=== PATIENT | female | born 1985 | race Caucasian/White ===

== ENCOUNTER 2017-11-16 19:29 | Emergency (ER) | payer BC ==
[2017-11-16] MEDS ORDERED: SODIUM CHLORIDE 0.9% 1,000 ML IV STA (20:16)
--- NOTE | 2017-11-16 20:24 | ED ---
General Adult HPI <Sonny Wilson - Last Filed: 11/16/17 22:24> - General Source: patient, RN notes reviewed Mode of arrival: ambulatory Limitations: no limitations <Gaby Ziegler - Last Filed: 11/16/17 22:34> - General Chief complaint: Abdominal Pain Stated complaint: Abd pain Time Seen by Provider: 11/16/17 19:50 - History of Present Illness Initial comments: 32-year-old female presents to the emergency department with a chief complaint of epigastric abdominal pain radiates to the back. She states that she's had this on and off for the past month or so. Of flareup minimal go away. She denies any nausea or vomiting with it. She denies any relation to anything in particular with it. She has not had any high fever chills. She denies any history of abdominal surgeries in the past. They were concerned due to her continued pain and the fact does not seem to be getting better so they thought that they should be evaluated. Patient denies any recent fever, chills, shortness of breath, chest pain, back pain, numbness or tingling, dysuria or hematuria, constipation or diarrhea, headaches or visual changes, or any other current symptoms. (Gaby Ziegler) - Related Data Home Medications Medication Instructions Recorded Confirmed Ibuprofen [Motrin Ib] 400 mg PO Q6H PRN 11/16/17 11/16/17 Allergies Allergy/AdvReac Type Severity Reaction Status Date / Time propoxyphene napsylate AdvReac Nausea & Verified 11/16/17 19:59 [From Bubba-N] Vomiting Review of Systems ROS Other: All systems not noted in ROS Statement are negative. <Sonny Wilson - Last Filed: 11/16/17 22:24> ROS Other: All systems not noted in ROS Statement are negative. <Gaby Ziegler - Last Filed: 11/16/17 22:34> ROS Statement: Those systems with pertinent positive or pertinent negative responses have been documented in the HPI. Past Medical History Past Medical History: No Reported History History of Any Multi-Drug Resistant Organisms: MRSA Date of last positivie culture/infection: 2007 MDRO Source:: Groin, L Breast Past Surgical History: No Surgical Hx Reported Past Anesthesia/Blood Transfusion Reactions: No Reported Reaction Past Psychological History: Anxiety Smoking Status: Former smoker Past Alcohol Use History: Occasional Past Drug Use History: Marijuana - Past Family History Mother Family Medical History: No Reported History <Gaby Ziegler - Last Filed: 11/16/17 22:34> General Exam <SteveSonny - Last Filed: 11/16/17 22:24> Limitations: no limitations <Gaby Ziegler - Last Filed: 11/16/17 22:34> - General Exam Comments Initial Comments: General: The patient is awake and alert, in no distress, and does not appear acutely ill. Eye: Pupils are equal, round and reactive to light, extra-ocular movements are intact; there is normal conjunctiva bilaterally. No signs of icterus. Ears, nose, mouth and throat: There are moist mucous membranes. Neck: The neck is supple, there is no tenderness. Cardiovascular: There is a regular rate and rhythm. No murmur, rub or gallop is appreciated. Respiratory: Lungs are clear to auscultation, respirations are non-labored, breath sounds are equal. No wheezes, stridor, rales, or rhonchi. Gastrointestinal: Soft, non-distended, mild right upper quadrant tenderness of the abdomen without masses or organomegaly noted. There is no rebound or guarding present. No CVA tenderness. Bowel sounds are unremarkable. Back: There is no tenderness to palpation in the midline. There is no obvious deformity. No rashes noted. Musculoskeletal: Normal ROM, no tenderness, There is no pedal edema. There is no calf tenderness or swelling. Sensation intact. Pulses equal bilaterally 2+. Neurological: CN II-XII intact, There are no obvious motor or sensory deficits. Coordination appears grossly intact. Speech is normal. Skin: Skin is warm and dry and no rashes or lesions are noted. Psychiatric: Cooperative, appropriate mood & affect, normal judgment. (Gaby Ziegler) Vital Signs 11/16/17 19:35 Temperature 97.5 F L Pulse Rate 85 Respiratory 16 Rate Blood Pressure 118/55 O2 Sat by Pulse 100 Oximetry Medical Decision Making - Lab Data Result diagrams: 11/16/17 20:34 11/16/17 20:34 <Sonny Wilson - Last Filed: 11/16/17 22:24> - Lab Data Result diagrams: 11/16/17 20:34 11/16/17 20:34 - Radiology Data Radiology results: report reviewed, image reviewed <Gaby Ziegler - Last Filed: 11/16/17 22:34> - Medical Decision Making Medical decision making; is a 32-year-old female has been having worsening gallbladder issues. Today she ate a greasy fatty food meal and developed acute discomfort. 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 The ultrasound shows cholelithiasis but no evidence of obstruction at this time. White count is 10. The patient's feeling significantly better at this time. She'll be referred onto her family doctor and general surgeon for evaluation and she'll also be given a prescription for a HIDA scan to be done at her convenience early next week. Dr. Wilson (Sonny Wilson) 32-year-old female presents for abdominal pain. At this time ultrasound is been reviewed. This time we discussed follow-up with Dr. Webber due to biliary colic as well as cholelithiasis. This time pain has improved. At this time we did discuss return parameters and follow-up. We discussed what to watch for and when to come back to the ER. The patient is this plan all questions have been answered. Patient will be discharged. (Gaby Ziegler) - Lab Data Lab Results 11/16/17 11/16/17 11/16/17 Range/Units 20:34 20:34 21:35 WBC 10.8 H (3.8-10.6) k/uL RBC 4.47 (3.80-5.40) m/uL Hgb 12.2 (11.4-16.0) gm/dL Hct 36.3 (34.0-46.0) % MCV 81.2 (80.0-100.0) fL MCH 27.3 (25.0-35.0) pg MCHC 33.6 (31.0-37.0) g/dL RDW 14.1 (11.5-15.5) % Plt Count 308 (150-450) k/uL Neutrophils % 63 % Lymphocytes % 28 % Monocytes % 5 % Eosinophils % 2 % Basophils % 1 % Neutrophils # 6.8 (1.3-7.7) k/uL Lymphocytes # 3.1 (1.0-4.8) k/uL Monocytes # 0.5 (0-1.0) k/uL Eosinophils # 0.2 (0-0.7) k/uL Basophils # 0.1 (0-0.2) k/uL Sodium 140 (137-145) mmol/L Potassium 4.2 (3.5-5.1) mmol/L Chloride 104 (98-107) mmol/L Carbon Dioxide 24 (22-30) mmol/L Anion Gap 12 mmol/L BUN 11 (7-17) mg/dL Creatinine 0.62 (0.52-1.04) mg/dL Est GFR (MDRD) Af Amer >60 (>60 ml/min/1.73 sqM) Est GFR (MDRD) Non-Af >60 (>60 ml/min/1.73 sqM) Glucose 94 (74-99) mg/dL Calcium 9.6 (8.4-10.2) mg/dL Total Bilirubin 0.7 (0.2-1.3) mg/dL AST 23 (14-36) U/L ALT 31 (9-52) U/L Alkaline Phosphatase 91 (38-126) U/L Total Protein 7.6 (6.3-8.2) g/dL Albumin 4.5 (3.5-5.0) g/dL Amylase 60 (30-110) U/L Lipase 73 (23-300) U/L Urine Color Urine Appearance (Clear) Urine pH (5.0-8.0) Ur Specific [place] (1.001-1.035) Urine Protein (Negative) Urine Glucose (UA) (Negative) Urine Ketones (Negative) Urine Blood (Negative) Urine Nitrite (Negative) Urine Bilirubin (Negative) Urine Urobilinogen (<2.0) mg/dL Ur Leukocyte Esterase (Negative) Urine HCG, Qual Not Detected (Not Detectd) 11/16/17 Range/Units 21:35 WBC (3.8-10.6) k/uL RBC (3.80-5.40) m/uL Hgb (11.4-16.0) gm/dL Hct (34.0-46.0) % MCV (80.0-100.0) fL MCH (25.0-35.0) pg MCHC (31.0-37.0) g/dL RDW (11.5-15.5) % Plt Count (150-450) k/uL Neutrophils % % Lymphocytes % % Monocytes % % Eosinophils % % Basophils % % Neutrophils # (1.3-7.7) k/uL Lymphocytes # (1.0-4.8) k/uL Monocytes # (0-1.0) k/uL Eosinophils # (0-0.7) k/uL Basophils # (0-0.2) k/uL Sodium (137-145) mmol/L Potassium (3.5-5.1) mmol/L Chloride (98-107) mmol/L Carbon Dioxide (22-30) mmol/L Anion Gap mmol/L BUN (7-17) mg/dL Creatinine (0.52-1.04) mg/dL Est GFR (MDRD) Af Amer (>60 ml/min/1.73 sqM) Est GFR (MDRD) Non-Af (>60 ml/min/1.73 sqM) Glucose (74-99) mg/dL Calcium (8.4-10.2) mg/dL Total Bilirubin (0.2-1.3) mg/dL AST (14-36) U/L ALT (9-52) U/L Alkaline Phosphatase (38-126) U/L Total Protein (6.3-8.2) g/dL Albumin (3.5-5.0) g/dL Amylase (30-110) U/L Lipase (23-300) U/L Urine Color Yellow Urine Appearance Clear (Clear) Urine pH 5.5 (5.0-8.0) Ur Specific [place] 1.013 (1.001-1.035) Urine Protein Negative (Negative) Urine Glucose (UA) Negative (Negative) Urine Ketones Negative (Negative) Urine Blood Negative (Negative) Urine Nitrite Negative (Negative) Urine Bilirubin Negative (Negative) Urine Urobilinogen <2.0 (<2.0) mg/dL Ur Leukocyte Esterase Negative (Negative) Urine HCG, Qual (Not Detectd) Disposition <Sonny Wilson - Last Filed: 11/16/17 22:24> Time of Disposition: 22:34 <Gaby Ziegler - Last Filed: 11/16/17 22:34> Clinical Impression: Biliary colic, Cholelithiasis Disposition: HOME SELF-CARE Condition: Stable Instructions: Biliary Colic (ED) Additional Instructions: Please use medication as discussed. Please follow up with family doctor if symptoms have not improved over the next two days. Please return to the emergency room if your symptoms increase or worsen or for any other concerns. Referrals: Leslee Webber MD [STAFF PHYSICIAN] - 1-2 days
[2017-11-16 20:53] LABS: Basophils # (A) 0.1 k/uL (0-0.2); Basophils % (A) 1 %; Eosinophils # (A) 0.2 k/uL (0-0.7); Eosinophils % (A) 2 %; HCT 36.3 % (34.0-46.0); HGB 12.2 gm/dL (11.4-16.0); Lymphocytes # (A) 3.1 k/uL (1.0-4.8); Lymphocytes % (A) 28 %; MCH 27.3 pg (25.0-35.0); MCHC 33.6 g/dL (31.0-37.0); MCV 81.2 fL (80.0-100.0); Mean Platelet Volume 8.4; Monocytes # (A) 0.5 k/uL (0-1.0); Monocytes % (A) 5 %; Neutrophils # (A) 6.8 k/uL (1.3-7.7); Neutrophils % (A) 63 %; Platelet Count 308 k/uL (150-450); RBC 4.47 m/uL (3.80-5.40); RDW 14.1 % (11.5-15.5); WBC 10.8 k/uL (3.8-10.6)
[2017-11-16 21:01] LABS: ALT 31 U/L (9-52); AST 23 U/L (14-36); Albumin 4.5 g/dL (3.5-5.0); Alkaline Phosphatase 91 U/L (38-126); Amylase 60 U/L (30-110); Anion Gap 12 mmol/L; Blood Urea Nitrogen 11 mg/dL (7-17); Calcium 9.6 mg/dL (8.4-10.2); Carbon Dioxide 24 mmol/L (22-30); Chloride 104 mmol/L (98-107); Glucose 94 mg/dL (74-99); Lipase 73 U/L (23-300); Potassium 4.2 mmol/L (3.5-5.1); Sodium 140 mmol/L (137-145); Total Bilirubin 0.7 mg/dL (0.2-1.3); Total Protein 7.6 g/dL (6.3-8.2)
[2017-11-16 21:56] LABS: Appearance,Urine Clear (Clear); Bilirubin,Urine Negative (Negative); Blood,Urine Negative (Negative); Color,Urine Yellow; Glucose,Urine (UA) Negative (Negative); Ketones,Urine Negative (Negative); Leukocyte Esterase,Urine Negative (Negative); Nitrite,Urine Negative (Negative); PH, Urine 5.5 (5.0-8.0); Protein,Urine Negative (Negative); Specific Gravity,Urine 1.013 (1.001-1.035); Urobilinogen,Urine <2.0 mg/dL (<2.0)
--- NOTE | 2017-11-16 21:56 | US ---
EXAMINATION TYPE: US gallbladder DATE OF EXAM: 11/16/2017 COMPARISON: NONE CLINICAL HISTORY: Pain. Intermittent epigastric pain x 6 months EXAM MEASUREMENTS: Liver Length: 18.3 cm Gallbladder Wall: 0.3 cm CBD: 0.3 cm Right Kidney: 10.1 x 4.8 x 5.1 cm Pancreas: visualized portions wnl, head and tail obscured by overlying midline bowel gas Liver: enlarged at 18.3cm, heterogenous, increased echogenicity Gallbladder: appears hydropic with multiple mobile echogenic shadowing foci, wall measures in upper limits of normal at 0.3cm Evidence for sonographic Rangel's sign: yes CBD: visualized portions wnl, limited by overlying bowel gas Right Kidney: wnl IMPRESSION: Distended Gallbladder with cholelithiasis occupying approximately 5% of its lumen. Without gallbladde r wall thickening there is no definite cholecystitis sonographically, although it is noted that the s onographer reported Rangel's sign.
[2017-11-16 22:43] VITALS: BP 117/76; PULSE 74; RESP 18; TEMP 98.2
== END 2017-11-16 22:40 | disposition home or self-care (01) ==
LOC: EC 19:29
DX: K80.70 Calculus of gallbladder and bile duct without cholecystitis without obstruction (principal); Z86.14 Personal history of Methicillin resistant Staphylococcus aureus infection; Z87.891 Personal history of nicotine dependence; Z88.5 Allergy status to narcotic agent
CPT/HCPCS: 36415; 76705; 80053; 81003; 81025; 82150; 83690; 85025; 96360; 99284

== ENCOUNTER 2018-02-15 10:30 | Day surgery (SDC) | payer BC ==
[2018-02-07 14:35] VITALS: BMI 32.9
[~2018-02-15 10:30] MED LIST: DEXAMETHASONE SOD PHOSPHATE 10 MG/ML 1 ML VIAL IV ONE; HEPARIN SODIUM,PORCINE 5,000 UNIT/ML 1 ML VIAL SQ ONE; LACTATED RINGERS 1,000 ML IV SCH; MIDAZOLAM 2 MG/2 ML VIAL IV PRN; ONDANSETRON ODT 4 MG TAB PO ONE; SCOPOLAMINE 1.5MG/72HR PATCH TRANSDERM ONE; ceFAZolin IN SWFI 2 GM/20 ML SYRINGE IVP ONE; fentaNYL (PF) 50 MCG/ML 2 ML AMP IV PRN
[2018-02-15] MEDS ORDERED: LIDOCAINE 1% 20 ML VIAL (10MG/ML) FOR IV START INTRADERMA ONE (10:53)
[2018-02-15] MEDS ORDERED: MIDAZOLAM 2 MG/2 ML VIAL ONE (11:04)
[2018-02-15] MEDS ORDERED: LIDOCAINE 1% INJ 10MG/ML (20 ML MDV) ONE (11:04)
[2018-02-15] MEDS ORDERED: PROPOFOL 10 MG/ML 20 ML VIAL IV ONE (11:04)
[2018-02-15] MEDS ORDERED: ONDANSETRON 4 MG/2 ML VIAL ONE (11:04)
[2018-02-15] MEDS ORDERED: diphenhydrAMINE 50 MG/ML 1 ML VIAL ONE (11:04)
[2018-02-15] MEDS ORDERED: KETOROLAC 30 MG/ML 1 ML VIAL ONE (11:04)
[2018-02-15] MEDS ORDERED: fentaNYL (PF) 50 MCG/ML 2 ML AMP ONE (11:04)
[2018-02-15] MEDS ORDERED: GLYCOPYRROLATE 0.2 MG/ML 2 ML VIAL ONE (11:04)
[2018-02-15] MEDS ORDERED: DEXAMETHASONE SOD PHOS (MDV) 100 MG/10 ML VIAL ONE (11:04)
[2018-02-15] MEDS ORDERED: NEOSTIGMINE 1 MG/ML 10 ML VIAL ONE (11:04)
[2018-02-15] MEDS ORDERED: SUCCINYLCHOLINE CHLORIDE 100 MG/5 ML SYR IV ONE (11:04)
[2018-02-15] MEDS ORDERED: ROCURONIUM BROMIDE 10 MG/ML 10 ML VIAL IV ONE (11:04)
[2018-02-15] MEDS ORDERED: MORPHINE SULFATE 10 MG/ML SYRINGE ONE (11:04)
[2018-02-15] MEDS ORDERED: BUPIVACAINE (PF) 0.25% 30 ML VIAL SQ ONE (11:19)
[2018-02-15 12:13] VITALS: TEMP 97.6
[2018-02-15] MEDS ORDERED: HYDROcodone/APAP 5-325MG 1 EACH TAB PO PRN (13:14)
[2018-02-15] MEDS ORDERED: NALOXONE 0.4 MG/ML 1 ML VIAL IV PRN (13:14)
--- NOTE | 2018-02-15 13:16 | P.OP ---
Date of Procedure: 02/15/18 Procedure(s) Performed: PREOPERATIVE DIAGNOSIS: Biliary dyskinesia POSTOPERATIVE DIAGNOSIS: Same PROCEDURE: Laparoscopic cholecystectomy SURGEON: Roxanne EBL: Minimal see anesthesia record ANESTHESIA: Gen. COMPLICATIONS: None OPERATIVE PROCEDURE: The patient was brought and placed on the operating room table in the supine position. The patient was placed under general anesthesia at that time. The abdomen was prepped and draped in the usual sterile fashion. A small vertical infraumbilical incision was made. The fascia was grasped with the Mike forceps. The fascia was retracted anteriorly. The Veress needle was advanced into the peritoneal cavity. The saline drop test was normal. Insufflation took place up to 15 mmHg. A 5 mm optical trocar was advanced and the peritoneal cavity. 2 additional 5 mm trochars were placed in the right upper quadrant under direct visualization. A 10 mm trocar was advanced into the epigastric incision site. The gallbladder was retracted superiorly and laterally. The peritoneum overlying the infundibulum was bluntly dissected. The patient's cystic duct was visualized. The junction between the cystic duct common and hepatic duct was identified. The cystic duct was then divided after placement of 3 10 mm clips on the patient's side and one on the specimen side. The cystic artery was identified and clipped as well. A small vessel was seen along the gallbladder fossa and clipped as well. The gallbladder was then removed from the liver bed using electrocautery. The gallbladder was then removed from the epigastric trocar site with an Endo Catch bag. The gallbladder fossa was irrigated with saline. There was no evidence of any bleeding or biliary drainage seen. The trochars were then removed. The fascia at the 10 millimeter site was closed using a figure-of- eight 0 Vicryl stitch. The skin at all 4 sites was closed using a 4-0 Monocryl stitch. At the end of this procedure the sponge and needle counts were correct. DISPOSITION: Stable to the recovery room
[2018-02-15] MEDS ORDERED: HYDROcodone/APAP 5-325MG 1 EACH TAB PO ONE (13:44)
[2018-02-15 14:20] VITALS: RESP 18
[2018-02-15 14:21] VITALS: BP 119/78; PULSE 82
== END 2018-02-15 14:44 | disposition home or self-care (01) ==
LOC: OR 10:30
PROVIDERS: ATTEND Surgery
DX: K80.10 Calculus of gallbladder with chronic cholecystitis without obstruction (principal); Z79.899 Other long term (current) drug therapy; Z88.8 Allergy status to other drugs, medicaments and biological substances; Z87.891 Personal history of nicotine dependence
CPT/HCPCS: 81025; 88304; 47562; J2250; J1200; J1644; J1100 ×2; J2710; J2270; J2405; J2001; J3010; J1885; J0330; J2704; J0690

== ENCOUNTER → 2018-05-02 | Outpatient (CLI) | payer BC ==
[2018-05-02 09:42] LABS: Basophils % (A) 0 %; Eosinophils # (A) 0.1 k/uL (0-0.7); Eosinophils % (A) 1 %; HCT 39.6 % (34.0-46.0); Lymphocytes # (A) 1.7 k/uL (1.0-4.8); Lymphocytes % (A) 16 %; MCH 28.4 pg (25.0-35.0); MCHC 32.8 g/dL (31.0-37.0); MCV 86.7 fL (80.0-100.0); Mean Platelet Volume 7.5; Monocytes # (A) 0.4 k/uL (0-1.0); Monocytes % (A) 4 %; Neutrophils # (A) 8.1 k/uL (1.3-7.7); Neutrophils % (A) 78 %; Platelet Count 312 k/uL (150-450); RBC 4.56 m/uL (3.80-5.40); RDW 13.6 % (11.5-15.5); WBC 10.4 k/uL (3.8-10.6)
== END | disposition home or self-care (01) ==
LOC: LABPAT 09:11
PROVIDERS: ATTEND Obstetrics & Gynecology
DX: Z01.812 Encounter for preprocedural laboratory examination (principal); O03.9 Complete or unspecified spontaneous abortion without complication
CPT/HCPCS: 36415; 85025

== ENCOUNTER 2018-05-03 07:41 | Day surgery (SDC) | payer BC ==
[2018-05-02 10:25] VITALS: BMI 32.9
[~2018-05-03 07:41] MED LIST changes: -HEPARIN SODIUM,PORCINE 5,000 UNIT/ML 1 ML VIAL SQ ONE; +ONDANSETRON 4 MG/2 ML VIAL IVP ONE; -ONDANSETRON ODT 4 MG TAB PO ONE; +Pre Op ABX Message 1 EACH MISC MISCELLANE ONE; -ceFAZolin IN SWFI 2 GM/20 ML SYRINGE IVP ONE
[2018-05-03] MEDS ORDERED: LIDOCAINE 1% 20 ML VIAL (10MG/ML) FOR IV START INTRADERMA ONE (08:15)
[2018-05-03 08:26] VITALS: RESP 16; TEMP 98
[2018-05-03] MEDS ORDERED: KETOROLAC 30 MG/ML 1 ML VIAL ONE (08:39)
[2018-05-03] MEDS ORDERED: MIDAZOLAM 2 MG/2 ML VIAL ONE (08:39)
[2018-05-03] MEDS ORDERED: LIDOCAINE 1% INJ 10MG/ML (20 ML MDV) ONE (08:39)
[2018-05-03] MEDS ORDERED: fentaNYL (PF) 50 MCG/ML 2 ML AMP ONE (08:39)
[2018-05-03] MEDS ORDERED: PROPOFOL 10 MG/ML 20 ML VIAL IV ONE (08:39)
--- NOTE | 2018-05-03 09:05 | P.OP ---
Date of Procedure: 05/03/18 Preoperative Diagnosis: Missed Postoperative Diagnosis: Same Procedure(s) Performed: Suction dilation and curettage Anesthesia: MAC Surgeon: Helen Flor Estimated Blood Loss (ml): 25 IV fluids (ml): 400 Urine output (ml): 50 Pathology: other (Uterine contents) Condition: stable Disposition: PACU Indications for Procedure: Missed at approximately 8 weeks gestation Operative Findings: Products of conception Description of Procedure: After the patient was met in the preoperative holding area and all questions were answered, she was taken to the operating room where anesthetic was administered without incident. She is in positioned, prepped and draped in the dorsal lithotomy position. Bladder was drained for approximately 50 mL of clear urine. Exam under anesthetic was performed and the uterus was approximately 8-10 weeks size and mobile. She decided speculum was placed in the vagina and the cervix was grasped anteriorly with a single-tooth tenaculum. Uterus was sounded to 8 cm. The cervix was approximately 1 cm dilated. The cervix was further dilated with Hegar dilators to allow for passage of the curved 8 suction curette. Suction curette was introduced on and the uterus was circumferentially curettaged with appropriate products of conception obtained. The suction curet was removed and an additional pass with the sharp curette was undertaken. Minimal additional tissue was obtained. Final pass with suction curet revealed no active bleeding or additional tissue. The curet was removed and the cervix was observed with no active bleeding noted. Tenaculum and speculum were removed and the patient was awoken from anesthetic. She is transported recovery area in stable condition. Of note patient's blood type is Rh+.
[2018-05-03 10:13] VITALS: BP 109/67; PULSE 77
== END 2018-05-03 10:43 | disposition home or self-care (01) ==
LOC: OR 07:41
PROVIDERS: ATTEND Obstetrics & Gynecology
DX: O02.1 Missed abortion (principal); Z3A.08 8 weeks gestation of pregnancy; Z86.14 Personal history of Methicillin resistant Staphylococcus aureus infection; Z88.5 Allergy status to narcotic agent; J30.2 Other seasonal allergic rhinitis; Z87.891 Personal history of nicotine dependence
CPT/HCPCS: 86900; 86901; 88305; 86850; 59820; J2250; J1100; J2405; J2001; J3010; J1885; J2704

== ENCOUNTER → 2020-06-30 | Outpatient (CLI) | payer BC | END | disposition home or self-care (01) | LOC: LABWHC1 12:57 | PROVIDERS: ATTEND Obstetrics & Gynecology | DX: N92.5 Other specified irregular menstruation (principal) | CPT/HCPCS: 36415; 84144; 84702 ==

== ENCOUNTER → 2020-07-02 | Outpatient (CLI) | payer BC | END | disposition home or self-care (01) | LOC: LABWHC1 11:42 | PROVIDERS: ATTEND Obstetrics & Gynecology | DX: N92.5 Other specified irregular menstruation (principal) | CPT/HCPCS: 36415; 84702 ==

== ENCOUNTER 2022-07-10 17:38 | Outpatient (CLI) | payer BC ==
[2022-07-10 18:47] VITALS: BP 117/58; PULSE 90; RESP 16; TEMP 96.8
--- NOTE | 2022-08-08 09:34 | P.MSEPDOC ---
Presenting Problems - Arrival Data Date of Arrival on Unit: 07/10/22 Time of Arrival on Unit: 17:38 Mode of Transport: Ambulatory - Complaint OB-Reason for Admission/Chief Complaint: Other Comment: pt here with c/o irregular contractions and possible leaking of fluid since. 1100 today, abd soft and non tender, reports + fm, denies complications with Medical History - Information : 4 Para: 3 Term: 1 : 2 Number of Living Children: 3 - Gestational Age Gestational Age by MARISSA (wks/days): 38 Weeks and 3 Days Review of Systems - Review of Systems Constitutional: No problems Breast: No problems ENT: No problems Cardiovascular: No problems Respiratory: No problems Gastrointestinal: No problems Genitourinary: No problems Musculoskeletal: No problems Neurological: No problems Skin: No problems Vital Signs - Temperature Temperature: 96.8 F Temperature Source: Temporal Artery Scan - Pulse Right Brachial Pulse Rate: 90 Pulse Assessment Method: Auscultation - Respirations Respiratory Rate: 16 Oxygen Delivery Method: Room Air O2 Sat by Pulse Oximetry: 98 - Blood Pressure Right Arm Blood Pressure: 117/58 Blood Pressure Mean: 77 Blood Pressure Source: Automatic Cuff Medical Screen Scoring - Cervical Exam Dilation (cm): 2.5 Effacement (%): 70 Station: -2 Membranes: Intact - Assessment - Baby A Baseline FHR: 155 Heart Rate - NICHD Category: Category I (Normal) NST: Reactive Physician Notification - Physician Notified Physician Notified Date: 07/10/22 Physician Notified Time: 18:30 Physician: Claudia Veronica Order Received: Yes (dc home) Maternal Triage Index - Non-Urgent/Priority 4 Non-Urgent Priority 4: Yes Criteria Met for Priority 4: amnisure negative, pt ok to dc home Disposition - Disposition OB Disposition: Physician follow up in office, Discharge to home, Written follow up instructions reviewed Discharge Date: 07/10/22 Discharge Time: 18:40 I agree with the RN Medical Screening Exam: Yes Case reviewed; plan agreed upon as documented in EMR&OBIX.: Yes Diagnosis: FALSE LABOR AT OR AFTER 37 COMPLETED WEEKS OF GESTATION
== END 2022-07-10 18:40 | disposition home or self-care (01) ==
LOC: FBPOP 17:38
PROVIDERS: ATTEND Obstetrics & Gynecology
DX: O62.4 Hypertonic, incoordinate, and prolonged uterine contractions (principal); Z3A.38 38 weeks gestation of pregnancy
CPT/HCPCS: 59025; 84112; 99213

== ENCOUNTER 2022-07-20 06:06 | Inpatient (IN) | payer BC ==
[2022-07-20] MEDS ORDERED: TERBUTALINE 1 MG/ML VIAL SQ PRN (06:20)
[2022-07-20] MEDS ORDERED: OXYTOCIN 10 UNIT/ML 1 ML VIAL IM PRN (06:20)
[2022-07-20] MEDS ORDERED: CARBOPROST TROMETHAMINE 250 MCG/ML 1 ML AMP IM PRN (06:20)
[2022-07-20] MEDS ORDERED: METHYLERGONOVINE 0.2 MG/ML 1 ML AMP IM PRN (06:20)
[2022-07-20] MEDS ORDERED: LIDOCAINE 0.5% (PF) 5 MG/ML (50 ML SDV) SQ PRN (06:20)
[2022-07-20] MEDS: LACTATED RINGERS 1,000 ML IV SCH ×2 (06:25→18:46)
[2022-07-20] MEDS ORDERED: OXYTOCIN 30 UNITS/500 ML NS 30 UNIT in SALINE 1 500ML.BAG IV SCH ×2 (06:30→10:15)
[2022-07-20 06:43] LABS: Basophils % (A) 0 %; Eosinophils # (A) 0.1 k/uL (0-0.7); Eosinophils % (A) 1 %; HCT 36.4 % (34.0-46.0); HGB 12.2 gm/dL (11.4-16.0); Lymphocytes # (A) 1.8 k/uL (1.0-4.8); Lymphocytes % (A) 17 %; MCH 28.7 pg (25.0-35.0); MCHC 33.5 g/dL (31.0-37.0); MCV 85.6 fL (80.0-100.0); Mean Platelet Volume 9.4; Monocytes # (A) 0.4 k/uL (0-1.0); Monocytes % (A) 4 %; Neutrophils # (A) 7.9 k/uL (1.3-7.7); Neutrophils % (A) 76 %; Platelet Count 228 k/uL (150-450); RBC 4.25 m/uL (3.80-5.40); RDW 13.8 % (11.5-15.5); WBC 10.3 k/uL (3.8-10.6)
--- NOTE | 2022-07-20 08:19 | P.HPOB ---
History of Present Illness H&P Date: 07/20/22 Chief Complaint: Term This is a 36-year-old 8 para 1243 woman who is admitted at 39-6/7 weeks' gestation for induction of labor with a favorable cervix. Her has been complicated by covert in the early portion of the . She has been monitored with testing which will has been reassuring. She has a large for gestational age infant with estimated weight at the 87th percentile by ultrasound in the third trimester. Her obstetric history is significant for deliveries at 35 weeks, a 36 weeks and a term delivery at 39 weeks of the baby with pulmonary stenosis. echo and pediatric cardiology consultation on this have all been reassuring. Laboratory data blood type A+, antibody screen negative, rubella immune, VDRL nonreactive, hepatitis surface antigen negative, HIV negative, gonorrhea and cli marylou cultures negative, he glucose tolerance testing within normal limits, group B strep negative. Review of Systems All systems: negative Past Medical History Past Medical History: Skin Disorder Additional Past Medical History / Comment(s): eczema, anemia History of Any Multi-Drug Resistant Organisms: MRSA Date of last positivie culture/infection: 2006 MDRO Source:: Groin Past Surgical History: Cholecystectomy Additional Past Surgical History / Comment(s): [place] Teeth Past Anesthesia/Blood Transfusion Reactions: Motion Sickness Past Psychological History: Anxiety Additional Psychological History / Comment(s): does not take medication for anxiety Smoking Status: Former smoker Past Alcohol Use History: None Reported Additional Past Alcohol Use History / Comment(s): quit smoking 2011, smoked for 6 yrs, 1 PPD Past Drug Use History: None Reported - Past Family History Mother Family Medical History: No Reported History Medications and Allergies Home Medications Medication Instructions Recorded Confirmed Type Famotidine [Zantac-360 10 mg PO DIRECTED 07/10/22 07/20/22 History (Famotidine)] Vit No.179/Iron/Folic 1 each PO DAILY 07/10/22 07/20/22 History [ Tablet] Allergies Allergy/AdvReac Type Severity Reaction Status Date / Time propoxyphene napsylate AdvReac Nausea & Verified 07/20/22 06:19 [From Darvocet-N] Vomiting Exam Vital Signs Temp Pulse Resp BP Pulse Ox 07/20/22 06:18 96.9 F L 93 17 113/77 97 Intake and Output 07/19/22 07/20/22 07/20/22 22:59 06:59 14:59 Other: Weight 102.965 kg Targeted physical exam is performed. This is a pleasant visibly gravid woman in no obvious distress. The abdomen is gravid with a fundal height larger than gestational age. On pelvic examination the cervix is 4+ centimeters dilated, 80% effaced and the vertex in the -3 station. Artificial rupture membranes undertaken and clear fluid is noted. heart tones are category 1 by external monitoring and she is maurice very irregularly. Results Result Diagrams: 07/20/22 06:30 Abnormal Lab Results - Last 24 Hours (Table) 07/20/22 Range/Units 06:30 Neutrophils # 7.9 H (1.3-7.7) k/uL Assessment and Plan (1) Term Current Visit: Yes Status: Acute Code(s): Z34.90 - ENCNTR FOR SUPRVSN OF NORMAL , UNSP, UNSP TRIMESTER SNOMED Code(s): 39073790 (2) LGA (large for gestational age) fetus Current Visit: Yes Status: Acute Code(s): KXT7350 - SNOMED Code(s): 158275191 Plan: 36-year-old 8 para 1-43 woman who is admitted at 39-6/7 weeks' gestation for induction of labor with a favorable cervix. status is currently reassuring by external monitoring. She is group B strep negative and Rh+. Large for gestational age infant is suspected based on examination as well as ultrasound. Nursing staff is aware.
[2022-07-20] MEDS ORDERED: BUTORPHANOL 1 MG/ML 1 ML VIAL IV PRN (09:05)
[2022-07-20] MEDS ORDERED: BENZOCAINE/MENTHOL SPRAY 1 GM/SPRAY AEROSOL TOPICAL PRN (10:11)
[2022-07-20] MEDS ORDERED: LANOLIN CREAM 5 GM TUBE TOPICAL PRN (10:11)
[2022-07-20] MEDS ORDERED: diphenhydrAMINE 50 MG CAP PO PRN (10:11)
[2022-07-20] MEDS ORDERED: SIMETHICONE 80 MG CHEWABLE PO PRN (10:11)
[2022-07-20] MEDS ORDERED: HYDROCORTISONE 2.5% RECTAL CREAM 30 GM TUBE RECTAL PRN (10:11)
[2022-07-20] MEDS ORDERED: diphenhydrAMINE 25 MG CAP PO PRN (10:11)
[2022-07-20] MEDS ORDERED: ZOLPIDEM 5 MG TAB PO PRN (10:11)
[2022-07-20] MEDS ORDERED: diphenhydrAMINE 50 MG/ML 1 ML VIAL IVP PRN ×2 (10:11)
--- NOTE | 2022-07-20 10:11 | P.PROBDLV ---
Vaginal Delivery Note - . Vaginal Delivery Note: Findings: Male in the left occiput anterior position with Apgars of 9 at 1 minute and 9 at 5 minutes weighing 8 lbs. 7 oz., 3830 g. Intact, three-vessel cord placenta. First-degree perineal laceration. EBL 250 mL's. Delivery summary: This is a 36-year-old 8 para 1243 woman who was admitted at 39-6/7 weeks' gestation for induction of labor with a favorable cervix. She had a suspected large for gestational age based on examination as well as ultrasound indicating 7th percentile for growth. At the time of admission she underwent artificial rupture of membranes and was approximate 4 cm dilated at 8 AM. She had rapid progression to complete cervical dilation and had a very strong urge to push. She had approximately 90 minute first stage of labor. With uncontrolled maternal effort the head did crown. Additional staff was available in the room and the patient was in the modified Crystal position. With additional maternal effort the head did deliver from the direct occiput anterior position and there was an immediate "turtle sign". The patient was placed in the Crystal position however had difficulty with complete flexion of the hips secondary to maternal discomfort. The head rested tooted to the left occiput anterior position. The head was extremely tight against the posterior perineum precluding the immediate episiotomy or excess to the posterior shoulder. The anterior shoulder was then attempted to be internally rotated. This did not facilitate delivery. Suprapubic pressure was then administered in addition to internal rotation of the anterior shoulder. This allowed access to the humerus which I was then able to grasp with my index and middle finger. With additional internal rotation and gentle downward traction this facilitated delivery of the sohulder and then the . Estimated time of dystocia was between 30 and 45 seconds. Following delivery the nose and mouth were bulb suctioned and the cord was clamped and cut. The infant was taken immediately to the warmer for assessment. Apgars w ere 9 at 1 minute and 9 at 5 minutes and weight was 8 lbs. 7 oz., 3830 g. After an approximately 3 minute third stage of labor an intact, three-vessel cord placenta was delivered. The perineum was inspected and a first-degree laceration was noted. This was infused with lidocaine and repaired with a [id number] of 3-0 Vicryl suture. The patient received Pitocin following the third stage of labor and EBL was approximately 250 mL's. Events of delivery were reviewed with Kailey and her . The Shoulder dystocia and the possibility of a left arm injury were reviewed with them in lig ht of the extremely difficult delivery. The paper cutter operator has been notified and will evaluate the . The does appear to have decreased movement in the left upper extremity compared to the right at this time. There is some facial bruising noted as well.
[2022-07-20] MEDS: IBUPROFEN 600 MG TAB PO PRN ×3 (10:28→23:44)
[2022-07-20] MEDS: ACETAMINOPHEN TAB 325 MG TAB PO PRN (20:20)
[2022-07-20] MEDS: SENNOSIDES-DOCUSATE SODIUM 1 EACH TAB PO SCH (20:20)
[2022-07-21] MEDS: ACETAMINOPHEN TAB 325 MG TAB PO PRN ×2 (03:16→12:31)
[2022-07-21] MEDS: IBUPROFEN 600 MG TAB PO PRN ×2 (07:55→14:10)
[2022-07-21] MEDS: SENNOSIDES-DOCUSATE SODIUM 1 EACH TAB PO SCH (07:56)
[2022-07-21 08:22] LABS: Basophils % (A) 0 %; Eosinophils # (A) 0.2 k/uL (0-0.7); Eosinophils % (A) 2 %; HCT 33.7 % (34.0-46.0); Lymphocytes # (A) 1.8 k/uL (1.0-4.8); Lymphocytes % (A) 17 %; MCH 28.3 pg (25.0-35.0); MCHC 32.7 g/dL (31.0-37.0); MCV 86.6 fL (80.0-100.0); Monocytes # (A) 0.4 k/uL (0-1.0); Monocytes % (A) 4 %; Neutrophils % (A) 76 %; Platelet Count 205 k/uL (150-450); RBC 3.89 m/uL (3.80-5.40); RDW 14.1 % (11.5-15.5); WBC 10.4 k/uL (3.8-10.6)
--- NOTE | 2022-07-21 08:44 | P.DS ---
Providers Date of admission: 07/20/22 06:06 Expected date of discharge: 07/21/22 Attending physician: Helen Flor Primary care physician: Stated None - Discharge Diagnosis(es) (1) Term Current Visit: Yes Status: Acute (2) LGA (large for gestational age) fetus Current Visit: Yes Status: Acute (3) Shoulder dystocia, delivered Current Visit: Yes Status: Acute (4) Normal spontaneous vaginal delivery Current Visit: No Status: Acute (5) Perineal laceration with delivery, first degree Current Visit: Yes Status: Acute Hospital Course: This is a 36-year-old 8 now para 2-44 woman who was admitted at 39-6/7 weeks' gestation for elective induction of labor with a favorable cervix. She had a suspected large for gestational age based on examination and ultrasound. She was admitted and underwent a Pitocin induction of labor per protocol with artificial rupture of membranes. She had a very rapid approximately 90 minute first stage of labor to reach complete cervical dilation. She had reassuring status throughout. With strong urge to push she did push several times to . Possibility of shoulder dystocia was prepared for and additional staff was in the room. She did indeed have a severe shoulder dystocia which was resolved with Crystal positioning, suprapubic pressure and internal rotation and delivery of the anterior, left, arm. Please see the delivery summary for details. The patient's course was otherwise unremarkable. She had a first-degree perineal laceration that was repaired. She had minimal lochia and was breast and bottle feeding successfully. The was evaluated and radiographs were negative for fracture however there is limited mobility of the left shoulder. No evidence of neurovascular injury per the road test examiner. Baby will follow-up with primary road test examiner. Her labs were normal and vital signs were stable on day #1. Her lochia was minimal. Her perineum was well healing and she was ambulating and voiding without difficulty. She was therefore discharged home with routine instructions for care and follow-up as well as close follow-up for the infant. Procedures: Normal spontaneous vaginal delivery Patient Condition at Discharge: Good Plan - Discharge Summary New Discharge Prescriptions: No Action Famotidine [Zantac-360 (Famotidine)] 10 mg PO DIRECTED Vit No.179/Iron/Folic [ Tablet] 1 each PO DAILY Discharge Medication List Famotidine [Zantac-360 (Famotidine)] 10 mg PO DIRECTED 07/10/22 [History] Vit No.179/Iron/Folic [ Tablet] 1 each PO DAILY 07/10/22 [History] Follow up Appointment(s)/Referral(s): Helen Flor MD [STAFF PHYSICIAN] - 6 Weeks Activity/Diet/Wound Care/Special Instructions: Follow-up in the office in 6 weeks . Call with any concerning signs or symptoms including heavy vaginal bleeding, severe abdominal pain, fever greater than 101, swelling or redness of the lower extremities, foul vaginal discharge, or signs of depression. Nothing in the vagina for 6 weeks after delivery, specifically no intercourse. Discharge Disposition: HOME SELF-CARE
[2022-07-21 12:34] VITALS: BP 110/74; PULSE 78; RESP 17; TEMP 97.1
== END 2022-07-21 14:50 | disposition home or self-care (01) | DRG 807 ==
LOC: 4FBP 06:06
PROVIDERS: ADMIT Obstetrics & Gynecology; ATTEND Obstetrics & Gynecology
PROC: 10907ZC Drainage of Amniotic Fluid, Therapeutic from Products of Conception, Via Natural or Artificial Opening (ICD-10-PCS; principal; 2022-07-20)
PROC: 3E033VJ Introduction of Other Hormone into Peripheral Vein, Percutaneous Approach (ICD-10-PCS; principal; 2022-07-20)
PROC: 10E0XZZ Delivery of Products of Conception, External Approach (ICD-10-PCS; principal; 2022-07-20)
PROC: 0HQ9XZZ Repair Perineum Skin, External Approach (ICD-10-PCS; principal; 2022-07-20)
DX: O36.63X0 Maternal care for excessive fetal growth, third trimester, not applicable or unspecified (principal); Z37.0 Single live birth; O66.0 Obstructed labor due to shoulder dystocia; O70.0 First degree perineal laceration during delivery; O99.344 Other mental disorders complicating childbirth; F41.9 Anxiety disorder, unspecified; Z3A.39 39 weeks gestation of pregnancy; Z87.891 Personal history of nicotine dependence; L30.9 Dermatitis, unspecified; Z86.14 Personal history of Methicillin resistant Staphylococcus aureus infection; Z28.310 Unvaccinated for COVID-19
CPT/HCPCS: 85025; 86850; 86900; 86901